=== PATIENT | male | born 1965 | race Caucasian/White ===

== ENCOUNTER 2021-10-19 16:40 | Emergency (ER) | payer OTHER ==
[2021-10-19] MEDS ORDERED: Sodium Chloride 0.9% 10 ML Syringe FLUSH PRN (16:59)
[2021-10-19] MEDS ORDERED: Aspirin 81 MG Tab.Chew PO ONE (17:07)
[2021-10-19] MEDS ORDERED: Heparin Sodium 5,000 Units/ML Vial IVPUSH ONE (17:07)
[2021-10-19] MEDS ORDERED: Heparin Sodium/D5W 25,000 UNITS/500 ML BAG IV SCH (17:15)
[2021-10-19] MEDS ORDERED: Metoprolol Tartrate 25 MG Tab PO ONE (18:40)
[2021-10-19] MEDS ORDERED: atorvaSTATin 20 MG Tab PO ONE (18:40)
== END 2021-10-19 19:30 ==
LOC: JD.ED 16:40
DX: I21.4 Non-ST elevation (NSTEMI) myocardial infarction (principal); Z72.0 Tobacco use; Z20.822 Contact with and (suspected) exposure to COVID-19
CPT/HCPCS: 36415; 85025; 85730; 87635; 93005; 96365; 99285; A9270; J1644; 93010; U0002